=== PATIENT | female | born 1960 | race African-American/Black ===

== ENCOUNTER → 2016-12-27 | Outpatient (CLI) | payer BC ==
[~2016-12-27] MED LIST: CENTRUM PO; EC-NAPROSYN500 MG PO; KROGER PHARMACY; METAMUCIL FIB1 WAFER PO; ZOCOR PO
--- NOTE | ~2016-12-27 | US85 ---
[facility] A Service of [facility] / [facility] RADIOLOGY TEXT RESULTS PATIENT: DANNY JOHANSEN LOCATION: CNIV : 60 UNIT #: [id number] AGE: [address]: LELE HINDS APRN SEX: F ORDER DR: [id number] [facility] [address] [place], [place] [address] [id number] O MR#: [id number] Acc #: [id number] NAME: DANNY JOHANSEN : 1960 SEX: F STUDY DATE/TIME: 12/27/2016 16:19 UNIT: CNIV ROOM: STUDY DESCRIPTION: [facility] or [facility] Attending Physician: Lele Hinds Aprn Referring Physician: Lele Hinds Aprn Ordering Physician: Lele Hinds Aprn Primary Care Physician: Pari Ji M.D. MEDICAL IMAGING REPORT This report is preliminary unless electronic signature is present EXAM Right lower extremity venous duplex 12/27/2016 HISTORY Right lower extremity pain, swelling and burning for 9 days. Evaluate for deep vein thrombosis. TECHNIQUE Venous ultrasound examination of the right lower extremity was performed using grayscale, spectral Doppler and color flow Doppler imaging. FINDINGS The examination is negative. There is no evidence of right lower extremity deep venous thrombus from the groin to the lower calf. Visualized greater saphenous vein is also patent. IMPRESSION Negative examination. No evidence of right lower extremity deep venous thrombosis. Dictated by... Heath Renteria M.D. THIS IS AN ELECTRONICALLY VERIFIED REPORT Heath Renteria M.D. at 12/28/2016 8:09 AM KRT/pcl TD: 12/27/2016 17:55 JOB #: [id number] [facility] A Service [facility] RADIOLOGY TEXT RESULTS PATIENT: DANNY JOHANSEN LOCATION: CNIV : 60 UNIT #: [id number] AGE: [address]: LELE HINDS APRN SEX: F ORDER DR: MEDICAL IMAGING REPORT Page 1 of 1 COPY
== END | disposition home or self-care (01) ==
LOC: CNIV 15:57
DX: M79.661 Pain in right lower leg (principal)
CPT/HCPCS: 93971